=== PATIENT | male | born 1975 | race Caucasian/White ===

== ENCOUNTER → 2024-12-13 | Outpatient (CLI) | payer OTHER ==
[2024-12-13 12:48] VITALS: BP 146/106; PULSE 91; RESP 16
--- NOTE | 2024-12-13 14:36 | P.PAINPG ---
Objective - Vital Signs Vital signs: Intake & Output 12/12/24 12/13/24 12/13/24 18:59 06:59 18:59 Weight 90.718 kg PQRS Measure Charge Sheet Comment: HISTORY OF PRESENT ILLNESS: A 49 yr old male as a referral from Dr Gunderson presents today w severe and chronic generalized pain secondary to LL BKA and shoulder DJD for evaluation. Pt states pain level is provoked at 10 /10 in intensity, constant, localized in the L knee and BL shoulders, achy in character without shooting pain. Pain is provoked by any thing. Pain is alleviated by medications (of which he is requesting [place] 10/325mg #120), repositioning and rest . He states he doesn't want to go back to his original PCP because he was reduced to #90 monthly and does not want to integrate non narcotic medications. PMH: OA, HTN, PSH: L BKA, SH: Daily tobacco use, Occ ETOH use, FH: Non contributory All: See list Medications include [place] 10/325mg #90 REVIEW OF ORGAN SYSTEMS: CONSTITUTIONAL: No fevers or chills. No recent weight loss. NEUROLOGICAL: + numbness and tingling along the distal extremities. No seizure disorders or headaches. MUSCULOSKELETAL: + pain PSYCHIATRIC: Denies current depression or suicidal thoughts. Physical Examinations : Constitutional : Cooperative , not in acute distress . Neurologic : Cranial nerve II to XII intact. No focal neurological deficits. Psychiatric : alert & oriented x 3. Matching mood & appropriate affect. Judgment & insight intact. Musculoskeletal : Cervical Spine Motor strength in the deltoid and biceps: Normal right side. Normal Left side Motor strength biceps and the wrist extensors: Normal right side . Normal left side Motor strength in the triceps muscle: Normal right side. Normal left side Deep tendon reflexes: Normal at the biceps. Normal at Brachioradialis. Normal at triceps Lhermitte Sign (cervical flexion) positive Vertebral body tenderness to deep palpation over Cervical facet loading test: positive bilaterally Spurling test: positive bilaterally Neck distraction test: positive bilaterally Ankit sign: positive bilaterally Shoulders Muscle bulk/ tone/ strength BL Resisted Internal Rotation positive R / positive L Resisted External Rotation positive R / positive L Empty Can Test positive R / positive L Drop Arm Test positive R / positive L Lumbar spine +L BKA Motor strength lower extremities ,thigh and legs 5/5 Right side , 5/5 Left side Deep tendon reflexes : Normal Knee Jerk. Normal Ankle Jerk Vertebral body tenderness over Jaime Test positive Lumbar facet Loading Test: positive Right / positive Left Range of motion of the lumbar spine Flexion 30 degrees, extension 10 degrees Straight Leg Raise test: Left/ Right positive at degrees Drop foot reflex: positive R / positive L Josafat test: positive right / positive left. Severe tenderness over the Sacroiliac joint on the Right / Left sides Gaenslen test: positive bilaterally Sacral spine : Severe tenderness over the Sacroiliac joint: right side / left side Range of motion: Flexion of the lumbar spine <60 degrees Range of motion: Extension of the lumbar spine <20 degrees Gaenslen's Test positive Josafat test: positive right side / left side Thigh Thrust Test Sacral Thrust Test Hip Joint Antalgic walking gait positive Trendelenburg positive R / positive L Imaging: None Assessment/ Plan : BL shoulder DJD, L BKA Pf stated he will return to this PCP if he can not get the narcotic medications he is requesting. All questions answered. I have spent greater than 30 minutes on patient care today. Dr Marks was available by phone for the evaluation of this patient. The time was used to review the medical records including relevant urine studies and Prescription history (MAPs), review of the available imaging, evaluation and examination of the patient, coordination of care with the medical staff and if applicable referring physicians, as well as creation of the medical record Home Medications: Ambulatory Orders HYDROcodone/APAP 10-325MG [[place] 10-325] 1 tab PO Q6HR PRN 12/13/24 Metoprolol Succinate [Metoprolol Succinate ER] 12/13/24 Controlled Substance Measures - Controlled Substance Measures Is patient prescribed a controlled substance at discharge?: No
== END ==
LOC: PNWHC3 12:28
PROVIDERS: ATTEND Specialist
DX: M19.012 Primary osteoarthritis, left shoulder (principal); M19.011 Primary osteoarthritis, right shoulder; Z89.512 Acquired absence of left leg below knee
CPT/HCPCS: 99202